=== PATIENT | female | born 1990 | race Caucasian/White ===

== ENCOUNTER 2017-06-28 23:02 | Emergency (ER) | payer MEDICAID ==
[~2017-06-28] VITALS: Ht 175.3 cm; Wt 68.2 kg
[~2017-06-28 23:02] MED LIST: ADDERALL; AMOXICILLIN 50500 MG PO; BACTRIM DS 8001 TAB PO; BACTROBAN 22GM22 GM NAS; CEFTIN500 MG PO; CEPHALEXIN250 M1 PO; CEPHALEXIN500 M1 PO; CIPRO 500MG TA500 MG PO; CONCERTA18 MG PO; ESCITALOPRAM; LEVAQUIN 250MG250 MG PO; LEXAPRO 10MG10 MG PO; LORTAB 5/500 501 TAB PO; NAPROXEN EC500 MG PO; NO HOME MEDICATIONS; NORCO 325 MG-51 TAB PO; NUVARING VAG RING VG; OMNICEF 300MG300 MG PO; PHENERGAN 25 TA25 MG PO; SEPTRA DS 8001 TAB PO; SILVADENE 400G400 GM TP; TRILEPTAL150 MG PO; TYLENOL/CODEINE1 ML PO; VICODIN 5/5001 UDTAB PO; VYVANSE; ZOFRAN 4MG T4 MG/TAB PO
[2017-06-28 23:09] VITALS: TEMP 98.3
[2017-06-29 00:40] VITALS: BP 119/64; PULSE 88
== END 2017-06-29 00:45 | disposition home or self-care (01) ==
LOC: COL.ER 23:02
DX: S90.32XA Contusion of left foot, initial encounter (principal); W20.8XXA Other cause of strike by thrown, projected or falling object, initial encounter; Y92.009 Unspecified place in unspecified non-institutional (private) residence as the place of occurrence of the external cause

== ENCOUNTER 2018-02-05 18:47 | Emergency (ER) | payer MEDICAID ==
[~2018-02-05] VITALS: Ht 175.3 cm; Wt 72.7 kg
[2018-02-05 18:50] VITALS: TEMP 98.9
[2018-02-05] MEDS ORDERED: PROAIR HFA0.09 MG/AC IH (22:08)
[2018-02-05] MEDS ORDERED: PREDNISONE20 MG PO (22:08)
[2018-02-05 22:29] VITALS: BP 120/85; PULSE 67
== END 2018-02-05 22:29 | disposition home or self-care (01) ==
LOC: COL.ER 18:47
DX: R07.9 Chest pain, unspecified (principal); F90.9 Attention-deficit hyperactivity disorder, unspecified type; F17.210 Nicotine dependence, cigarettes, uncomplicated

== ENCOUNTER 2018-05-20 10:46 | Emergency (ER) | payer MEDICAID ==
[~2018-05-20] VITALS: Ht 175.3 cm; Wt 75.9 kg
[~2018-05-20 10:46] MED LIST changes: +PREDNISONE20 MG PO; +PROAIR HFA0.09 MG/AC IH
[2018-05-20 10:51] VITALS: BP 124/67; PULSE 101; TEMP 98.4
[2018-05-20] MEDS ORDERED: AMOXICILLIN 50500 MG PO (11:11)
[2018-05-21] MEDS ORDERED: TYLENOL 500MG500 MG PO (08:39)
[2018-05-21] MEDS ORDERED: LIDODERM 5% PATC1 EA TP (09:09)
[2018-05-21] MEDS ORDERED: FLEXERIL 1010 MG/TAB PO (09:09)
== END 2018-05-20 11:29 | disposition other institution (70) ==
LOC: COL.ER 10:46
DX: K02.9 Dental caries, unspecified (principal); Z88.8 Allergy status to other drugs, medicaments and biological substances

== ENCOUNTER 2018-05-21 08:22 | Emergency (ER) | payer MEDICAID ==
[~2018-05-21] VITALS: Ht 175.3 cm; Wt 75.9 kg
[2018-05-21 08:26] VITALS: TEMP 98.6
[2018-05-21] MEDS ORDERED: TYLENOL 500MG500 MG PO (08:39)
[2018-05-21] MEDS ORDERED: FLEXERIL 1010 MG/TAB PO (09:09)
[2018-05-21] MEDS ORDERED: LIDODERM 5% PATC1 EA TP (09:09)
[2018-05-21 10:18] LABS: COLLECTION METHOD CLEAN CATCH
[2018-05-21 10:41] LABS: MUCOUS Present /lpf; PH 6 (5-8); URINE APPEARANCE Clear; URINE BACTERIA None Seen /hpf; URINE BILIRUBIN Negative (NEGATIVE); URINE BLOOD Negative (NEGATIVE); URINE COLOR Yellow; URINE GLUCOSE Negative (NEGATIVE); URINE KETONE Negative (NEGATIVE); URINE LEUKOCYTE ESTERASE Negative (NEGATIVE); URINE NITRATE Negative (NEGATIVE); URINE PROTEIN(semi-quant) Negative (NEGATIVE); URINE RBC 0-2 /hpf; URINE UROBILINOGEN Negative (NEGATIVE)
[2018-05-21 10:55] VITALS: BP 110/65; PULSE 68
== END 2018-05-21 10:55 | disposition home or self-care (01) ==
LOC: COL.ER 08:22
PROVIDERS: Physician Assistant
DX: O9A.219 Injury, poisoning and certain other consequences of external causes complicating pregnancy, unspecified trimester (principal); S39.012A Strain of muscle, fascia and tendon of lower back, initial encounter; O23.40 Unspecified infection of urinary tract in pregnancy, unspecified trimester; O23.599 Infection of other part of genital tract in pregnancy, unspecified trimester; B96.89 Other specified bacterial agents as the cause of diseases classified elsewhere; O99.340 Other mental disorders complicating pregnancy, unspecified trimester; F90.9 Attention-deficit hyperactivity disorder, unspecified type; O99.330 Smoking (tobacco) complicating pregnancy, unspecified trimester; Z3A.00 Weeks of gestation of pregnancy not specified; X50.0XXA Overexertion from strenuous movement or load, initial encounter

== ENCOUNTER 2018-07-14 20:49 | Emergency (ER) | payer MEDICAID ==
[~2018-07-14] VITALS: Ht 175.3 cm; Wt 80.5 kg
[~2018-07-14 20:49] MED LIST changes: +FLEXERIL 1010 MG/TAB PO; +LIDODERM 5% PATC1 EA TP; +TYLENOL 500MG500 MG PO
[2018-07-14 20:54] VITALS: TEMP 98.5
[2018-07-14 21:36] LABS: COLLECTION METHOD CLEAN CATCH
[2018-07-14 21:39] LABS: BASO % 0.1 % (0.0-2.0); GRAN # 11.7 (1.4-6.5); GRAN % 85.9 % (42.2-75.2); HEMOGLOBIN 11.3 g/dl (12.5-16.0); LYMPH # 0.7 (1.2-3.4); LYMPH % 5.2 % (20.0-51.0); MEAN CELL VOLUME 86 fl (80.0-100.0); MEAN CORPUSCULAR HEMOGLOBIN 29 pg (27.0-31.0); MEAN CORPUSCULAR HGB CONC 34 g/dl (33.0-37.0); MEAN PLATELET VOLUME 9.3 fl (7.4-10.4); MONO # 1.1 (0.1-0.6); MONO % 8.2 % (1.7-9.3); PLATELET COUNT 196 K/mm3 (130-400); RED BLOOD COUNT 3.84 M/mm3 (4.10-5.30); REDCELL DISTRIBUTION WIDTH-CV 14.2 % (11.5-14.5)
[2018-07-14 21:40] LABS: HEMATOCRIT 33.1 % (37.0-47.0)
[2018-07-14] MEDS ORDERED: ZOFRAN 4MG T4 MG/TAB PO (21:40)
[2018-07-14 21:47] LABS: ALBUMIN 3.5 gm/dL (3.5-5.0); BILIRUBIN,TOTAL 0.8 mg/dL (0.0-1.0); CALCIUM 8.9 mg/dL (8.4-10.2); CREATININE, serum 0.53 mg/dL (0.52-1.25); POTASSIUM 3.2 mmol/L (3.4-5.0); TOTAL PROTEIN 6.9 gm/dL (6.4-8.2)
[2018-07-14 21:51] LABS: AMORPHOUS CRYSTAL Present /uL; MUCOUS Present /lpf; PH 6 (5-8); URINE APPEARANCE Cloudy; URINE BACTERIA Many /hpf; URINE BILIRUBIN Negative (NEGATIVE); URINE BLOOD 1+ (NEGATIVE); URINE COLOR Yellow; URINE GLUCOSE Negative (NEGATIVE); URINE KETONE 1+ (NEGATIVE); URINE LEUKOCYTE ESTERASE 2+ (NEGATIVE); URINE NITRATE Positive (NEGATIVE); URINE PROTEIN(semi-quant) 2+ (NEGATIVE); URINE UROBILINOGEN Negative (NEGATIVE)
[2018-07-14] MEDS ORDERED: CEFTIN500 MG PO (22:26)
[2018-07-14 23:04] VITALS: BP 111/61; PULSE 92
== END 2018-07-14 23:12 | disposition home or self-care (01) ==
LOC: COL.ER 20:49
PROVIDERS: Emergency Medicine
DX: O23.42 Unspecified infection of urinary tract in pregnancy, second trimester (principal); O99.332 Smoking (tobacco) complicating pregnancy, second trimester; F17.210 Nicotine dependence, cigarettes, uncomplicated; Z3A.21 21 weeks gestation of pregnancy
CPT/HCPCS: A4216; J0696; J2405; J2550; J7030

== ENCOUNTER 2018-10-09 01:53 | Outpatient (CLI) | payer MEDICAID ==
[~2018-10-09] VITALS: Ht 175.3 cm; Wt 84.5 kg
--- NOTE | 2018-10-09 02:00 | NUR ---
G3L2. 33-3. Ambulatory to LDR 3 with significant other. Clean gown on. EFM and TOCO explained, applied and tracing well. Pt states her contractions started around 2330 tonight (10/08/18) and that they have been around 2-3 minutes apart according to her alyx on her phone. Pt took warm bath and tylenol and it did not help. Pt starts in her lower back and moves around to her lower abdomen. Denies LOF or vaginal bleeding. Reports good movement. SVE /-2. Plan explained to pt who verbalizes understanding. Vital signs and assessment completed. Call light within reach. 0230: updated on pt. See physican notification. 0255: UA obtained. IV started and labs obtained via IV site. LR bolus infusing without difficulties. 0257: Terbutaline 0.25mgs explained and administered to left upper arm. 0258: Betamethasone 12mgs explained and administered to left buttock. Plan of care explained to pt and will continue to monitor and recheck cervix at 0430. Call light within reach.
[2018-10-09 02:16] VITALS: BP 121/72; PULSE 86; TEMP 97.9
[2018-10-09 03:23] LABS: COLLECTION METHOD CLEAN CATCH
[2018-10-09 03:28] LABS: PH 7 (5-8); SQUAMOUS EPITHELIAL 0-2 /hpf; URINE APPEARANCE Clear; URINE BACTERIA None Seen /hpf; URINE BILIRUBIN Negative (NEGATIVE); URINE BLOOD Negative (NEGATIVE); URINE COLOR Yellow; URINE GLUCOSE Negative (NEGATIVE); URINE KETONE Negative (NEGATIVE); URINE LEUKOCYTE ESTERASE Negative (NEGATIVE); URINE NITRATE Negative (NEGATIVE); URINE PROTEIN(semi-quant) Negative (NEGATIVE); URINE RBC None Seen /hpf; URINE UROBILINOGEN Negative (NEGATIVE); URINE WBC 0-2 /hpf
[2018-10-09 03:30] VITALS: BP 120/64; PULSE 89
[2018-10-09 04:00] VITALS: BP 117/59; PULSE 96
--- NOTE | 2018-10-09 04:33 | NUR ---
SVE unchanged and more posterior. Pt states she has not felt any contractions since she was given the medication. TOCO tracing some contractions but pt unable to tell they are occuring. 0438: updated on pts status and discharge instructions recieved. See physican notification. 0442: Pt updated on plan of care and 's orders. Questions answered and Pt off monitors to change. 0500: Discharge instructions given to pt and signficant other. Questions answered. Pt ambulatory off unit.
[2018-10-09 04:42] VITALS: BP 114/57; PULSE 94
== END 2018-10-09 05:00 | disposition home or self-care (01) ==
LOC: LDRO 01:53
PROVIDERS: Student in an Organized Health Care Education/Training Program
DX: O62.9 Abnormality of forces of labor, unspecified (principal); Z3A.33 33 weeks gestation of pregnancy
CPT/HCPCS: J0702; J3105; J7120

== ENCOUNTER 2018-10-10 17:58 | Outpatient (CLI) | payer MEDICAID ==
[~2018-10-10] VITALS: Ht 175.3 cm; Wt 84.5 kg
--- NOTE | 2018-10-10 17:55 | NUR ---
Patient arrives ambulatory for ordered second dose of Betamethasone. Denies contractions, ROM or vaginal bleeding. Reports normal movement. EFM explained and placed. VS obtained. Betamethasone given per order, see EMAR. Assessment completed. 1814- Report to Sandip Blank RN.
[2018-10-10 18:07] VITALS: BP 131/81; PULSE 108; TEMP 98.2
--- NOTE | 2018-10-10 18:20 | NUR ---
Care assumed report received from mahnaz park rn at bedside 0980. discharge instr reviewed. questions addressed.Verbalized understanding. home to self care..
== END 2018-10-10 18:48 ==
LOC: LDRO 17:58
DX: O36.8990 Maternal care for other specified fetal problems, unspecified trimester, not applicable or unspecified (principal); Z3A.33 33 weeks gestation of pregnancy
CPT/HCPCS: J0702

== ENCOUNTER 2018-11-02 12:17 | Outpatient (CLI) | payer MEDICAID ==
[~2018-11-02] VITALS: Ht 175.3 cm; Wt 85.5 kg
--- NOTE | 2018-11-02 12:20 | NUR ---
Presents to labor and delivery. States having contractions every six to seven minutes. Assessment done, questions offered and answered.
[2018-11-02 12:33] VITALS: BP 128/77; PULSE 96; TEMP 97.8
[2018-11-02 13:15] VITALS: BP 119/71; PULSE 93
[2018-11-02 13:30] VITALS: BP 124/75; PULSE 81
--- NOTE | 2018-11-02 13:30 | NUR ---
2360 Discharge instructions given, verbalizes understanding. Dismissed to home with significant other. Alert, ambulatory, stable.
== END 2018-11-02 13:45 | disposition home or self-care (01) ==
LOC: LDRO 12:17
DX: O62.9 Abnormality of forces of labor, unspecified (principal); Z3A.00 Weeks of gestation of pregnancy not specified

== ENCOUNTER 2018-11-02 21:20 | Outpatient (CLI) | payer MEDICAID ==
[~2018-11-02] VITALS: Ht 172.7 cm; Wt 85.5 kg
--- NOTE | 2018-11-02 21:25 | NUR ---
2124- PT PRESENTS TO LDR COMPLAINING OF CONTRACTIONS, AMBULATORY TO ROOM LR4, CHANGED INTO GOWN. 2128- EFM X2 APPLIED. PT DENIES LEAKING FLUID OR VAGINAL BLEEDING, STATES SHE IS FEELING BABY MOVE. STATES HER CONTRACTIONS HAVE BECOME CLOSER TOGETHER AND MORE INTENSE SINCE EARLIER TODAY WHEN SHE WAS HERE. PLAN OF CARE DISCUSSED. 2134- SVE BY THIS NURSE . PLAN FOR LABOR CHECK DISCUSSED AND QUESTIONS ANSWERED. 2139- NURSING ADMISSION HISTORY AND ASSESSMENT COMPLETE. 2211- PT UP TO BATHROOM. 2217- PT BACK ON MONITORS. 223- DR SU CALLS CHARGE NURSE AND IS UPDATED ON PT STRIP AND SVE. ORDERS FOR DISMISSAL RECEIVED IF STRIP IS REACTIVE AND CERVIX IS UNCHANGED. 224- SVE BY THIS NURSE UNCHANGED. PT STATES HER CONTRACTIONS SEEM MORE INTENSE THOUGH THEY ARE DECREASING IN FREQUENCY ON THE MONITOR. PT DOES NOT SEEM TO BE BREATHING THROUGH HER CONTRACTIONS EITHER AT THIS TIME. 2245- PT OFF MONITOR FOR DISMISSAL. 225- DISMISSAL INSTRUCTIONS GIVEN INCLUDING WHEN TO RETURN TO HOSPITAL. PT VERBALIZES UNDERSTANDING. PT DISMISSED TO HOME AMBULATORY ACCOMPANIED BY SIGNIFICANT OTHER.
[2018-11-02 22:00] VITALS: BP 128/73; PULSE 81; TEMP 98.5
== END 2018-11-02 22:58 | disposition home or self-care (01) ==
LOC: LDRO 21:20
DX: O62.9 Abnormality of forces of labor, unspecified (principal); Z3A.36 36 weeks gestation of pregnancy

== ENCOUNTER 2018-11-21 05:54 | Inpatient (IN) | payer BC, MEDICAID ==
[2018-11-21] VITALS (46 sets, daily range): BP systolic 110–1125; BP diastolic 56–85; PULSE 64–107; TEMP 97.9–98.5
[~2018-11-21] VITALS: Ht 172.7 cm; Wt 86.8 kg
--- NOTE | 2018-11-21 07:29 | NUR ---
0715 PT ARRIVES FOR INDUCTION, AMB AND TO ROM LR4. GOWN ON THE TO BED WITH MONITORS PLACED. ASSESSMENT STARTED.
[2018-11-21 08:33] LABS: BASO # 0.1 (0.0-0.2); BASO % 0.4 % (0.0-2.0); EOS # 0.2 (0.0-0.7); EOS % 1.7 % (0-4.0); GRAN % 72.4 % (42.2-75.2); HEMOGLOBIN 10.1 g/dl (12.5-16.0); LYMPH # 2.3 (1.2-3.4); LYMPH % 18.5 % (20.0-51.0); MEAN CELL VOLUME 81 fl (80.0-100.0); MEAN CORPUSCULAR HEMOGLOBIN 27 pg (27.0-31.0); MEAN CORPUSCULAR HGB CONC 33 g/dl (33.0-37.0); MONO # 0.7 (0.1-0.6); MONO % 5.9 % (1.7-9.3); PLATELET COUNT 269 K/mm3 (130-400); RED BLOOD COUNT 3.81 M/mm3 (4.10-5.30); REDCELL DISTRIBUTION WIDTH-CV 14.7 % (11.5-14.5)
[2018-11-21 08:34] LABS: HEMATOCRIT 30.9 % (37.0-47.0)
--- NOTE | 2018-11-21 09:30 | NUR ---
0740 ASSESSMENT COMPLETED AND IV STARTED ON FIRST ATTEMPT. PT TOLERATED WELL. PLAN OF CARE DISCUSSED WITH PT 0768 PITOCIN STARTED VIA PUMP AND PROTOCOL.
--- NOTE | 2018-11-21 09:39 | NUR ---
0830 DR SU HERE FOR AROM AND PT TOLERATED WELL.
--- NOTE | 2018-11-21 09:48 | NUR ---
0915 PT RESTING QUIETLY, DENIES NEEDS.
--- NOTE | 2018-11-21 09:56 | NUR ---
0950 ASSISTED TO BR TO VOID 900 CC URINE/AMNIOTIC FLUID
--- NOTE | 2018-11-21 10:42 | NUR ---
1030 RESTING QUIETLY IN BED AND DENIES NEEDS OR CONCERNS AT THIS TIME. VISIT WITH SO.
--- NOTE | 2018-11-21 11:22 | NUR ---
1110 DR SU CALLS INFOR REPORT AND WALDO REPORT GIVEN INCLUDING CONTRACTIONS PATTERNING SHOWING CONTRACTIONS EVERY 2 MINTUES. PITOCIN INCREASED PER VERBAL ORDER.
--- NOTE | 2018-11-21 12:15 | NUR ---
1130 PT REQUESTING EPIDRUAL. SVE SHOWS NO CHANGE FROM 1ST EXAM. IV FLUID BOLUS STATED. SUPERVISOR PICKING CREW NOTIFIED, JUST FINISHING ANOTHER CASE. PT AWARE.
--- NOTE | 2018-11-21 12:17 | NUR ---
1145 CIGAR ROLLER IN ROOM AND PT SET UP FOR EPIDURAL PLACEMENT.
--- NOTE | 2018-11-21 12:18 | NUR ---
1152 TEST DOSE GIVEN, PT TOELRATED WELL. 1155 PT REPOSITIONED IN BED WITH PILLOW UNDER RT HIP. 1200 STARTING TO FEEL BETTER.
--- NOTE | 2018-11-21 12:20 | NUR ---
1200 PRODUCT LISTER PUMP PLACED AND INFUSING MEDICATION. 1215 PT VISITS WITH SO AND FRIEND. ENC TO REST, SPRITE PROVIDED PER PT REQUEST.
--- NOTE | 2018-11-21 12:58 | NUR ---
1245 RESTING AND VISITING WITH FAMILY AND FRIEND. DENIES PAIN. PITOCIN INCREASED TO 20mU/MIN.
--- NOTE | 2018-11-21 13:33 | NUR ---
1310 DR SU ON UNIT AND IN TO SEE PT. SVE PERFORMED.
--- NOTE | 2018-11-21 14:07 | NUR ---
1400 RESTING QUIETLY. ICE CHIPS PROVIDED.
--- NOTE | 2018-11-21 16:36 | NUR ---
1520 SE SHOWS CHANGE TO 5CM. PT ENCOURAGED.
--- NOTE | 2018-11-21 16:39 | NUR ---
1615 PT STAES PRESSURE SENSATION UNCHANGED. SVE SHOWS PT 6-7 CM AND 100%EFFACED AT THIS TIME.
--- NOTE | 2018-11-21 17:05 | NUR ---
1700 Visiting with SO and friend.
--- NOTE | 2018-11-21 18:09 | NUR ---
1705 CALLED TO PT ROOM, FEELING MORE PRESSURE. 1707 SVE SHOWS PT COMPETE AND +[address] SU NOTIFIED TO COME FOR DELIVERY. NSY NOTIFIED. 1715 VINES CATH REMOVED EASILY. 1719 DR SU IN ROOM. PT SET UP FOR DELIVERY. 1721 PERINEAL PREP WITH SOAPY WATER. 1722 PT PUSHING WITH CONTRACTION AND DELIVERYS INFANT AT 1723 OVER 1 CONTRACTION. SPONT RESPIRATION NOTED AND INFANT BULB SUCTIONED AND STIMULATED BY MD. AJ MOM'S ABD AND CORD DOUBLE CLAMPED AND CUT. CORD BLOOD OBTAINED. 1725 LUSTY CRING NOTED. PARENT PLEASED WITH . 1728 PLACENTA DELIVERS SPONT AND INTACT. PITOCIN RATE INCREASED TO 333mU/MIN VIA PUMP. EPIDRUAL PUMP REMOVED BY TRIP FOLLOWER. 1730 REPAIR OF SMALL 1 DEGREE LACERATION STARTED. 1740 REPAIR COMPLETED. ICE PACK TP PERINEUM AND BED TOGETHER. 1755 PT MEDICATED WITH MOTRIN 600 MG PO FOR CONTROL OF PAIN.
--- NOTE | 2018-11-21 19:30 | NUR ---
1929 PERIPAD CHANGED WITH ONE PAD SAT AND 3 CM CLOT PASSED. NO ACTIVE VAG BLEEDING NOTED. EPID CATH REMOVED. WATCHES BABY BATH. 1999 IV TO INT. LEGS STILL A LITTLE HEAVY BUT AMB TO BR WITH ASSIST. 3/4 PAD SAT WITH 2CM CLOT PASSED. VOIDED 800CC. PERICARE DONE. IN W/C AND TO 208. SHANKAR WELL
--- NOTE | 2018-11-21 21:00 | NUR ---
2100 MOM REQUEST INT OUT. EXPLAINED SHE WILL NEED RHOGAM AND CAN RECEIVE IT THRU THE INT. STATES SHE WILL TAKE IT IM.
[2018-11-22 01:30] VITALS: BP 118/71; PULSE 93; TEMP 98.9
[2018-11-22 05:30] VITALS: BP 123/70; PULSE 89; TEMP 98
[2018-11-22 08:00] VITALS: BP 121/79; PULSE 88; TEMP 98.1
[2018-11-22] MEDS ORDERED: IBU600 MG PO (09:54)
[2018-11-22 12:30] VITALS: BP 131/86; PULSE 104; TEMP 98.8
[2018-11-22 17:00] VITALS: BP 116/60; PULSE 98; TEMP 98.4
--- NOTE | 2018-11-22 18:25 | NUR ---
1825-REVIEWED DISCHARGE INSTRUCTIONS WITH PATIENT AND PROVIDED F/U TIME. DENIES QUESTIONS. 182-AMBULATORY OFF UNIT WITH SPOUSE AND INFANT.
== END 2018-11-22 18:29 | disposition home or self-care (01) | DRG 807 ==
LOC: LDR 05:54 → OB 20:00
PROVIDERS: ADMIT Obstetrics & Gynecology
PROC: 10E0XZZ Delivery of Products of Conception, External Approach (ICD-10-PCS; principal; 2018-11-21)
PROC: 3E033VJ Introduction of Other Hormone into Peripheral Vein, Percutaneous Approach (ICD-10-PCS; 2018-11-21)
PROC: 10907ZC Drainage of Amniotic Fluid, Therapeutic from Products of Conception, Via Natural or Artificial Opening (ICD-10-PCS; 2018-11-21)
PROC: 0HQ9XZZ Repair Perineum Skin, External Approach (ICD-10-PCS; 2018-11-21)
DX: O99.334 Smoking (tobacco) complicating childbirth (principal); Z37.0 Single live birth; F17.210 Nicotine dependence, cigarettes, uncomplicated; Z3A.39 39 weeks gestation of pregnancy; O70.0 First degree perineal laceration during delivery; Z67.41 Type O blood, Rh negative
CPT/HCPCS: J2590; J2791; J7120

== ENCOUNTER 2019-05-16 20:36 | Emergency (ER) | payer BC ==
[~2019-05-16] VITALS: Ht 175.3 cm; Wt 60.9 kg
[~2019-05-16 20:36] MED LIST changes: +IBU600 MG PO
[2019-05-16 20:47] VITALS: BP 139/92; TEMP 98.4
[2019-05-16 23:47] VITALS: PULSE 71
== END 2019-05-16 23:47 | disposition home or self-care (01) ==
LOC: COL.ER 20:36
DX: S92.501A Displaced unspecified fracture of right lesser toe(s), initial encounter for closed fracture (principal); W22.8XXA Striking against or struck by other objects, initial encounter; F17.210 Nicotine dependence, cigarettes, uncomplicated

== ENCOUNTER 2021-01-26 18:19 | Emergency (ER) | payer SELFPAY ==
[~2021-01-26] VITALS: Ht 175.3 cm; Wt 72.7 kg
[2021-01-26 18:25] VITALS: TEMP 97.6
[2021-01-26 19:07] VITALS: BP 130/90; PULSE 85
== END 2021-01-26 19:09 | disposition home or self-care (01) ==
LOC: COL.ER 18:19
DX: S40.012A Contusion of left shoulder, initial encounter (principal); S10.93XA Contusion of unspecified part of neck, initial encounter; W21.03XA Struck by baseball, initial encounter